=== PATIENT | female | born 1965 | race Caucasian/White ===

== ENCOUNTER → 2018-02-21 | Outpatient (CLI) | payer OTHER, MEDICAID ==
[~2018-02-21] MED LIST: ACETAMINOPHEN325 M1 PO; ALBUTEROL2.5 MG/0.1 INH; ASPIR 8181 MG PO; ASPIRIN325 PO; BRINTELLIX10 MG PO; BRINTELLIX20 MG PO; CIPROFLOXACIN500 M1 PO; COLACE100 MG PO; COMPAZINE10 MG PO; CRESTOR10 MG PO; CRESTOR40 MG PO; DESYREL50 MG PO; ESTRACE0.5 MG PO; FLONASE 0.05%50 MCG NASAL; FUROSEMIDE 40 M40 M1 PO; HUMALOG100 UNIT/1; HUMALOG100 UNIT/1 SUBQ; HYDROCODONE-APA1 TA1 PO; HYOSCYAMIN125 MCG/5 SUBLING; ISOSORBIDE MONO60 M1 PO; K-DUR 20 MEQ T20 MEQ PO; KEFLEX500 MG PO; LASIX 40 MG TAB40 M1 PO; LASIX 40 MG TAB40 M2 PO; LEVAQUIN 750 M750 MG PO; LIPITOR40 MG PO; LIPITOR80 MG PO; LOPRESSOR25 PO; METOPROLOL SUCC25 M1 PO; NEURONTIN 300300 M1 PO; NEURONTIN 300M300 M2 PO; NEURONTIN600 MG PO; NIASPAN 500 MG500 M1 PO; NIASPAN ER 101000 M1 PO; NITROGLYCERIN0.4 MG SL; NITROGLYCERIN0.4 MG SUBLING; OMEGA-31000 M1 PO; OMEPRAZOLE 20 M20 MG PO; PERCOCET 5-3251 EACH PO; POTASSIUM20 PO; PREDNISONE 10 M10 M1; PRILOSEC 20 MG20 MG PO; PRINIVIL10 MG PO; PROAIR HFA8.5 GM INH; PROBIOTIC1 EAC1 PO; PROVERA10 MG PO; RANEXA 500 MG500 M1 PO; RANEXA500 MG PO; TRAMADOL 50 MG50 MG PO; TRAZODONE HCL100 MG PO; TRIZIVIR PO; VALIUM5 MG PO; WELLBUTRIN XL150 M2 PO; ZETIA10 MG PO; ZOFRAN ODT4 MG PO; ZOFRAN4 MG PO; ZOLOFT100 MG PO
== END ==
LOC: M.RAD 15:16
DX: J44.9 Chronic obstructive pulmonary disease, unspecified (principal); R06.00 Dyspnea, unspecified; E11.9 Type 2 diabetes mellitus without complications; I10 Essential (primary) hypertension; E78.00 Pure hypercholesterolemia, unspecified; G43.911 Migraine, unspecified, intractable, with status migrainosus; E78.5 Hyperlipidemia, unspecified; Z95.1 Presence of aortocoronary bypass graft